=== PATIENT | female | born 1945 | race Caucasian/White ===

== ENCOUNTER 2016-11-07 05:46 | Day surgery (SDC) | payer BC ==
[~2016-11-07] VITALS: Ht 157.5 cm; Wt 70.3 kg
[~2016-11-07 05:46] MED LIST: LISI10TA2 PO
[2016-11-07] MEDS ORDERED: LR 1,000 ML IV SCH ×4 (06:00→10:45)
[2016-11-07 06:08] LABS: MEAN CORPUSCULAR HEMOGLOBIN 30.3 pg (27.0-33.0); MEAN CORPUSCULAR HGB CONC 33.7 g/dl (32.0-36.5); MEAN CORPUSCULAR VOLUME 89.8 fl (80.0-96.0); RED CELL DISTRIBUTION WIDTH 12.4 % (11.5-14.5); WHITE BLOOD COUNT 5.6 K/mm3 (4.0-10.0)
[2016-11-07] MEDS ORDERED: fentaNYL 250 MCG/5 ML INJECTION (J3010) As Ordered ONE (06:19)
[2016-11-07] MEDS ORDERED: MIDAZOLAM INJ 2 MG/2 ML VIAL (J2250) As Ordered ONE (06:19)
[2016-11-07] MEDS ORDERED: dexameTHASONE 4 MG/ML 1ML VIAL (J1100) As Ordered ONE (06:34)
[2016-11-07] MEDS ORDERED: ROCURONIUM BROMIDE 50 MG/5 ML VIAL As Ordered ONE (06:34)
[2016-11-07] MEDS ORDERED: KETOROLAC 60 MG/2 ML VIAL (J1885) As Ordered ONE (06:34)
[2016-11-07] MEDS ORDERED: PROPOFOL 200 MG/20 ML VIAL As Ordered ONE (06:34)
[2016-11-07] MEDS ORDERED: GLYCOPYRROLATE INJ 0.2 MG/ML 2 ML VIAL As Ordered ONE (06:34)
[2016-11-07] MEDS ORDERED: LIDOCAINE 2% INJ 100 MG/5 ML SDV (FOR ANES.) As Ordered ONE (06:34)
[2016-11-07] MEDS ORDERED: ONDANSETRON 4MG/2ML VIAL (J2405) As Ordered ONE (06:34)
[2016-11-07] MEDS ORDERED: NEOSTIGMINE 1MG/ML 5 ML SYRINGE (J2710) As Ordered ONE (06:35)
[2016-11-07] MEDS ORDERED: VASOPRESSIN INJ 20 UNITS/ML VIAL As Ordered ONE (07:23)
[2016-11-07] MEDS ORDERED: ePHEDrine SULFATE 25 MG/5 ML(5MG/ML) SYRINGE As Ordered ONE (08:01)
[2016-11-07] MEDS ORDERED: VASOPRESSIN INJ 20 UNITS/ML VIAL XX ONE (08:10)
[2016-11-07] MEDS ORDERED: HYDROmorphone HCL 2 MG/ML 1ML VIAL (J1170) As Ordered ONE (08:39)
--- NOTE | 2016-11-07 10:39 | RO ---
DATE OF PROCEDURE: 11/07/2016 PREPROCEDURE DIAGNOSIS: Symptomatic pelvic relaxation. POSTPROCEDURE DIAGNOSES: Symptomatic pelvic relaxation. Fibroids. PROCEDURE: Total vaginal hysterectomy with bilateral salpingo-oophorectomy. Ureterosacral colpopexy with anterior and posterior repair and perineorrhaphy and cystourethroscopy. SURGEON: Dr. Yuki Casas PAPER ROLLER: Sherry Salmon. ANESTHESIA: General endotracheal anesthesia. ESTIMATED BLOOD LOSS: BRIEF DESCRIPTION OF PROCEDURE AND FINDINGS: Kelsie was brought to the operating room where sufficient general endotracheal anesthesia was induced. She was prepped, draped and positioned in the usual sterile fashion. The bladder emptied and the anterior and posterior aspect of the cervix grasped with a single tooth tenaculum. A circumferential incision was made around the base of the cervix with the vaginal tissues dissected away from the rectovaginal and pubovaginal tissues and the cardinal ligaments were isolated. These were then clamped, transected and ligated. #0 Vicryl suture was used throughout this portion and the D'Baldo clamps were used throughout this portion of the case. The uterosacrals were then identified posteriorly. These were clamped, transected and ligated and marked for later use and of course, the peritoneal reflection was entered both posteriorly and anteriorly. The uterine vasculature was then carefully clamped, transected and ligated in circumferential fashion along the lateral aspect of the uterus. Several fibroids were noted but because the uterus itself was overall quite shrunken with menopause, even though the 2-3 cm fibroid was almost the size of the uterus, the whole item was not excessive. We continued the dissection through the broad ligament and reached the fallopian tubes. Despite her previous tubal, we were able to identify them. We were also carefully able to dissect out pedicle so that we could deliver the ovaries and tubes attached to the uterus carefully securing the infundibulopelvic ligament as well. With the uterus, ovaries and tubes delivered, each of the pedicles were carefully examined and good hemostasis was confirmed. Posteriorly we dissected the enterocele sac and the rectocele so as to get good access to the rectovaginal septum and dissected anteriorly the pubovaginal tissues. Then carefully placed the vaginal cuff on traction and using long Allis clamps, grasped the uterosacral ligaments using #2-0 Prolene and #0 Vicryl, we used two of the Prolene and one of the Vicryl on each pedicle. The Prolene, of course, most cephalad and managed to get quite high on the ureterosacral with some effort. We then brought the Prolene anteriorly but not the most caudad stitch of Vicryl also secured the paravesical tissues. We then working in a circumferential fashion clamping off each suture so as not to tangle them, dissected further down to the rectovaginal septum and secured it as well and restepped some of that enterocele to close it along with the securing of the rectovaginal septum. Having secured the tissues in the usual fashion, we then brought down a single tie on each of those. We also brought the Vicryl down to the rectovaginal septum and brought it out through to the vagina and also used Fisher needles to bring both ends out through so that we could bring up the vagina quite well posteriorly. Having thrown a single throw in each of these six sutures, we then held them under tension and did the cystourethroscopy. With the Peridium the patient had taken already, we were able to see normal jets of urine from both ureters. We were also able to see that there was no injury to the bladder and we were also able to see that there was reasonable support of the cystocele with these efforts. Having completed the urethroscopy, we then completed the securing of each of the ureterosacral colpopexy sutures tying them down carefully and after multiple throws chewing those sutures off. We then working at the apex of the vagina, did anterior posterior repair and closed the cuff and the repair with #0 and #2-0 Vicryl with angle stitches carefully placed prior to the completion and closure of the cuff and the repair. We then worked at the perineum and an inverted triangle of tissue was removed at the perineum and dissected the vaginal tissues away from the rectovaginal septum at the introitus and carefully removed another triangle of tissue within the vagina and then closed this repair and the deep layers with #0 Vicryl and at the skin with #2-0 Vicryl. We did perineorrhaphy along with this securing the muscle of the perineal body horizontally and the also securing it vertically to confirm that the rectovaginal septum was well attached to the peritoneal body and then completed that closure on the skin with the #2-0. Having completed the hysterectomy and repair, procedure was then ended. Estimated blood loss for the procedure is maybe 50 mL. Fluid replacement was Crystalloid. Complications: None. Condition and disposition: Kelsie tolerated the procedure well and was recovering in the recovery room in good condition.
[2016-11-07] MEDS ORDERED: ONDANSETRON 4MG/2ML VIAL (J2405) IV PRN (10:45)
[2016-11-07] MEDS ORDERED: METOCLOPRAMIDE INJ 10MG/2ML VIAL (J2765) IV PRN (10:45)
[2016-11-07] MEDS ORDERED: IBUPROFEN 600 MG TAB PO PRN (10:45)
[2016-11-07] MEDS ORDERED: PERCOCET 5MG/325MG TAB PO PRN (10:45)
[2016-11-07] MEDS ORDERED: fentaNYL 100 MCG/2 ML INJECTION (J3010) IV PRN (10:45)
[2016-11-07 11:05] VITALS: BP 145/67
[2016-11-07 11:35] VITALS: BP 110/69
[2016-11-07] MEDS: NORCO, ANEXSIA 5/325MG TABLET (HYDROcodone/ACETAMINOPHEN) PO PRN ×2 (12:09→18:54)
[2016-11-07 12:35] VITALS: BP 119/63
[2016-11-07 13:35] VITALS: BP 125/66
[2016-11-07 14:35] VITALS: BP 133/60
[2016-11-07 15:35] VITALS: BP 129/71
[2016-11-08] MEDS ORDERED: LISINOPRIL 10 MG TAB PO SCH (09:00)
[2016-11-08] MEDS ORDERED: hydroCHLOROthiazide 12.5 MG CAPSULE PO SCH (09:00)
== END 2016-11-07 19:10 | disposition home or self-care (01) ==
LOC: M SDC 05:46 → M PED 11:16 → M SDC 19:10
PROVIDERS: ATTEND Obstetrics & Gynecology
DX: N81.89 Other female genital prolapse (principal); N72 Inflammatory disease of cervix uteri; D25.1 Intramural leiomyoma of uterus; I10 Essential (primary) hypertension; E78.5 Hyperlipidemia, unspecified; Z79.899 Other long term (current) drug therapy; Z79.82 Long term (current) use of aspirin
CPT/HCPCS: 36415; 57260; 57283; 58262; 85027; 86850; 86900; 86901; 88309; J0690; J1100; J1170; J1885; J2250; J2405; J2710; J3010